=== PATIENT | male | born 1995 | race Two or more races ===

== ENCOUNTER 2018-01-03 09:07 | Outpatient (CLI) | payer OTHER | END 2018-01-03 09:11 | disposition home or self-care (01) | LOC: RAD 501 09:07 | DX: G56.01 Carpal tunnel syndrome, right upper limb (principal) ==

== ENCOUNTER 2018-01-25 08:29 | Outpatient (CLI) | payer OTHER | END 2018-01-25 17:00 | disposition home or self-care (01) | LOC: SONOGRAMA 08:29 | DX: M25.531 Pain in right wrist (principal); M65.831 Other synovitis and tenosynovitis, right forearm; G56.01 Carpal tunnel syndrome, right upper limb ==